=== PATIENT | male | born 2000 | race American Indian/Alaskan Native ===

== ENCOUNTER 2021-09-23 18:56 | Emergency (ER) | payer MEDICAID ==
[2021-09-23 19:28] VITALS: BP 151/85
--- NOTE | 2021-09-23 23:22 | Emergency Department Report ---
ED General Adult HPI - General Chief complaint: Earache Stated complaint: EAR PAIN Source: patient Mode of arrival: Ambulatory Limitations: No Limitations - History of Present Illness Initial comments: Patient is a 21-year-old -[place] male with no past medical history presents to the ED with complaint of acute onset persistent bilateral muffling sounds in his ears due to complete bilateral cerumen impaction for the last 1 week, worse in the last 2 days. Patient denies ear pain, nausea, vomiting, headache, traumatic injury, nasal and sinus congestion, sore throat, chest pain, neck pain, shortness of breath, fever and chills or cough. MD Complaint: Bilateral cerumen compaction -: Sudden, week(s) (1) Location: face Radiation: non-radiation Severity scale (0 -10): 7 Quality: aching, dull Consistency: constant Improves with: none Worsens with: none Associated Symptoms: denies other symptoms. denies: confusion, chest pain, cough, diaphoresis, fever/chills, headaches, malaise, nausea/vomiting, rash, seizure, shortness of breath, syncope, weakness, other Treatments Prior to Arrival: none - Related Data Previous Rx's Medication Instructions Recorded Last Taken Type Carbamide Peroxide 6.5% [Ear Wax 5 drops OT Q8H #1 bottle 09/23/21 Unknown Rx Drops] Ibuprofen [Motrin] 600 mg PO Q8H PRN #20 tablet 09/23/21 Unknown Rx Allergies Allergy/AdvReac Type Severity Reaction Status Date / Time No Known Allergies Allergy Unverified 09/23/21 19:27 ED Review of Systems ROS: Stated complaint: EAR PAIN Other details as noted in HPI Constitutional: denies: chills, fever Eyes: denies: eye pain, eye discharge, vision change ENT: other (Bilateral cerumen impaction, my feeling in the ears bilaterally). denies: ear pain, throat pain Respiratory: denies: cough, shortness of breath, wheezing Cardiovascular: denies: chest pain, palpitations Endocrine: no symptoms reported Gastrointestinal: denies: abdominal pain, nausea, diarrhea Genitourinary: denies: urgency, dysuria Musculoskeletal: denies: back pain, joint swelling, arthralgia Skin: denies: rash, lesions Neurological: denies: headache, weakness, paresthesias Psychiatric: denies: anxiety, depression Hematological/Lymphatic: denies: easy bleeding, easy bruising ED Past Medical Hx - Past Medical History Previous Medical History?: No - Surgical History Past Surgical History?: No - Medications Home Medications: Home Medications Medication Instructions Recorded Confirmed Last Taken Type Carbamide Peroxide 6.5% [Ear Wax 5 drops OT Q8H #1 bottle 09/23/21 Unknown Rx Drops] Ibuprofen [Motrin] 600 mg PO Q8H PRN #20 tablet 09/23/21 Unknown Rx ED Physical Exam - General Limitations: No Limitations General appearance: alert, in no apparent distress - Head Head exam: Present: atraumatic, normocephalic, normal inspection - Eye Eye exam: Present: normal appearance, PERRL, EOMI Pupils: Present: normal accommodation - ENT ENT exam: Present: normal orophraynx, mucous membranes moist, other (Complete bilateral cerumen impaction) - Neck Neck exam: Present: normal inspection, full ROM. Absent: tenderness - Respiratory Respiratory exam: Present: normal lung sounds bilaterally. Absent: respiratory distress, wheezes, rales, rhonchi, chest wall tenderness, accessory muscle use, decreased breath sounds - Cardiovascular Cardiovascular Exam: Present: normal rhythm, tachycardia, normal heart sounds. Absent: systolic murmur, diastolic murmur, rubs, gallop - GI/Abdominal GI/Abdominal exam: Present: soft, normal bowel sounds. Absent: distended, guarding, hyperactive bowel sounds, hypoactive bowel sounds, mass, bruit - Extremities Exam Extremities exam: Present: normal inspection, full ROM, normal capillary refill - Back Exam Back exam: Present: normal inspection, full ROM. Absent: tenderness, CVA tenderness (R), CVA tenderness (L), muscle spasm, vertebral tenderness - Neurological Exam Neurological exam: Present: alert, oriented X3, CN II-XII intact, normal gait, reflexes normal - Psychiatric Psychiatric exam: Present: normal affect, normal mood - Skin Skin exam: Present: warm, dry, intact, normal color. Absent: rash ED Course Vital Signs 09/23/21 19:27 Temperature 98.8 F Pulse Rate 104 H Respiratory 16 Rate Blood Pressure 151/85 O2 Sat by Pulse 95 Oximetry ED Medical Decision Making - Medical Decision Making This is a 21-year-old -[place] male with no past medical history presents to the ED with complaint of acute onset persistent bilateral muffling sounds in his ears due to complete bilateral cerumen impaction for the last 1 week, worse in the last 2 days. In the ED, patient is alert and oriented x3 and is not in any distress. Patient was initially tachycardic in triage but on reevaluation, tachycardia resolved. Patient was discharged home on medications f or cerumen impaction and advised to follow-up with his primary care physician in 7 to 10 days for reevaluation or return to the ED immediately if symptoms get worse. - Differential Diagnosis Cerumen impaction; otitis media; otitis externa Critical care attestation.: If time is entered above; I have spent that time in minutes in the direct care of this critically ill patient, excluding procedure time. ED Disposition Clinical Impression: Bilateral impacted cerumen Disposition: 01 HOME / SELF CARE / HOMELESS Is pt being admited?: No Does the pt Need Aspirin: No Condition: Stable Instructions: Earwax Buildup, Adult, Ear Drops, Adult, [id number] Additional Instructions: Apply the medication to the affected ear as advised, drink plenty of fluids, follow-up with your primary care physician in 7 to 10 days for reevaluation. Return to the ED immediately if symptoms get worse. Prescriptions: Carbamide Peroxide 6.5% [Ear Wax Drops] 5 drops OT Q8H #1 bottle Ibuprofen [Motrin] 600 mg PO Q8H PRN #20 tablet PRN Reason: Pain Referrals: [facility] [Provider Group] - 3-5 Days Time of Disposition: 23:19 Print Language: BURMESE
== END 2021-09-24 00:02 | disposition home or self-care (01) ==
LOC: ED 18:56
DX: H61.23 Impacted cerumen, bilateral (principal)
CPT/HCPCS: 99282